=== PATIENT | female | born 1980 | race Caucasian/White ===

== ENCOUNTER 2018-02-16 10:38 | Emergency (ER) | payer OTHER ==
[~2018-02-16] VITALS: Ht 167.6 cm; Wt 122.5 kg
[~2018-02-16 10:38] MED LIST: Cyclobenzaprine5 MG PO; IBUP600 PO; Norco 10-325 T1 EACH PO; Norco 5-325 Ta1 EACH PO; Prednisone20 MG PO; Valium5 MG PO
[2018-02-16] MEDS ORDERED: KETO10 PO (12:33)
[2018-02-16] MEDS ORDERED: Cyclobenzaprine5 MG PO (12:33)
== END 2018-02-16 14:10 | disposition home or self-care (01) ==
LOC: ER 10:38
DX: S39.012A Strain of muscle, fascia and tendon of lower back, initial encounter (principal); F17.200 Nicotine dependence, unspecified, uncomplicated; X58.XXXA Exposure to other specified factors, initial encounter
CPT/HCPCS: 96372; 99282; J1885; J2920

== ENCOUNTER 2025-02-23 09:49 | Emergency (ER) | payer OTHER ==
[~2025-02-23] VITALS: Ht 170.2 cm; Wt 108.9 kg
[~2025-02-23 09:49] MED LIST changes: +KETO10 PO
[2025-02-23 09:56] VITALS: BP 189/96
[2025-02-23] MEDS ORDERED: Zovirax800 MG PO (10:03)
[2025-02-23] MEDS ORDERED: Prednisone20 MG PO (10:03)
== END 2025-02-23 10:06 | disposition home or self-care (01) ==
LOC: ER 09:49
DX: G51.0 Bell's palsy (principal); F17.200 Nicotine dependence, unspecified, uncomplicated; Z79.52 Long term (current) use of systemic steroids; Z79.899 Other long term (current) drug therapy; Z91.013 Allergy to seafood
CPT/HCPCS: 99283